=== PATIENT | female | born 1940 | race Caucasian/White ===

== ENCOUNTER → 2017-10-26 | Outpatient (CLI) | payer OTHER ==
[~2017-10-26] MED LIST: ALTACE10 MG PO; ASPIR 8181 MG PO; CALCIUM 500 +1 EAC5 PO; CARVEDILOL12.5 MG PO; FISH OIL 1,001000 M2 PO; MULTIVITAMINS1 EAC7 PO; PROLIA60 MG/1 ML SQ; ZOLOFT25 MG PO
== END ==
LOC: M.MRI 10-18 13:30
DX: M48.061 Spinal stenosis, lumbar region without neurogenic claudication (principal); M54.16 Radiculopathy, lumbar region; M43.16 Spondylolisthesis, lumbar region; M47.894 Other spondylosis, thoracic region; M51.24 Other intervertebral disc displacement, thoracic region; M51.27 Other intervertebral disc displacement, lumbosacral region